=== PATIENT | male | born 1965 | race Caucasian/White ===

== ENCOUNTER 2024-06-01 10:43 | Day surgery (SDC) | payer BC ==
[2024-05-28 13:36] LABS: BASOPHILS # (AUTO) 0.1 X10'3 (0-0.2); BASOPHILS % (AUTO) 0.8 % (0-1); EOSINOPHILS # (AUTO) 0.7 X10'3 (0-0.9); EOSINOPHILS % (AUTO) 11.8 % (0-6); HEMATOCRIT 50.5 % (42.0-52.0); HEMOGLOBIN 17.6 g/dl (14.0-17.9); LYMPHOCYTES # (AUTO) 2.5 X10'3 (1.1-4.8); LYMPHOCYTES % (AUTO) 40.5 % (21-51); MEAN CORPUSCULAR HEMOGLOBIN 34.2 PG (27.0-31.0); MEAN CORPUSCULAR HGB CONC 34.8 g/dL (33.0-36.5); MEAN CORPUSCULAR VOLUME 98.4 FL (78-98); MEAN PLATELET VOLUME 7.8 FL (7.4-10.4); MONOCYTES # (AUTO) 0.5 X10'3 (0-0.9); MONOCYTES % (AUTO) 8.4 % (2-12); NEUTROPHILS # (AUTO) 2.4 X10'3 (1.8-7.7); NEUTROPHILS % (AUTO) 38.5 % (42-75); PLATELET COUNT 228 X10'3 (140-440); RED BLOOD COUNT 5.14 X10'6 (4.70-6.10); RED CELL DISTRIBUTION WIDTH 14.9 % (11.5-14.5); WHITE BLOOD COUNT 6.3 X10'3 (4.5-11.0)
[2024-05-28 13:45] LABS: ALBUMIN 3.6 G/DL (3.4-5.0); ANION GAP 11 (8-16); BLOOD UREA NITROGEN 10 MG/DL (7-18); BUN/CREATININE RATIO 12.8 (10.0-20.0); CALCIUM 9.1 MG/DL (8.5-10.1); CHLORIDE 107 MMOL/L (99-107); CREATININE 0.78 MG/DL (0.60-1.10); GLUCOSE 124 MG/DL (70-104); POTASSIUM 4.3 MMOL/L (3.5-5.1); SODIUM 141 MMOL/L (135-145); TOTAL CARBON DIOXIDE 22.7 MMOL/L (24-32); eGFR > 90 ML/MIN
[2024-05-28 13:48] LABS: APTT 28 SECONDS (22-32); INR 1.2 INR
[2024-06-01] VITALS (11 sets, daily range): BP systolic 106–149; BP diastolic 62–82; PULSE 62–106; RESP 10–18; TEMP 98; O2SAT 16–99
[~2024-06-01] VITALS: Ht 188 cm; Wt 125.7 kg
[2024-06-01] MEDS ORDERED: SOTA80TA73 PO (11:05)
[2024-06-01] MEDS ORDERED: MULT-1085 PO (11:05)
[2024-06-01] MEDS ORDERED: RIVA20TA PO (11:05)
[2024-06-01] MEDS ORDERED: OMEG-5 PO (11:05)
[2024-06-01] MEDS ORDERED: VITA1CAP PO (11:05)
[2024-06-01] MEDS ORDERED: CHOL100053 PO (11:05)
[2024-06-01] MEDS: fentaNYL/PF 50MCG/1 ML 2ML syringe IV ONE (12:45)
[2024-06-01] MEDS: normal saline 1000ml 1,000 ML IV SCH (12:46)
[2024-06-01] MEDS: MIDAZolam 1mg/ml 10ml vial IV ONE (12:46)
== END 2024-06-01 13:55 | disposition home or self-care (01) ==
LOC: SSTAY O 10:43
PROVIDERS: ATTEND Internal Medicine Interventional Cardiology
DX: I48.0 Paroxysmal atrial fibrillation (principal); I49.1 Atrial premature depolarization; E78.00 Pure hypercholesterolemia, unspecified; E66.9 Obesity, unspecified; Z87.891 Personal history of nicotine dependence; Z79.01 Long term (current) use of anticoagulants; Z79.899 Other long term (current) drug therapy; Z68.35 Body mass index [BMI] 35.0-35.9, adult; Z91.013 Allergy to seafood
CPT/HCPCS: 36415; 80048; 85025; 85610; 85730; 92960; 93005; J2250; J3010; J7030